=== PATIENT | male | born 2000 | race Caucasian/White ===

== ENCOUNTER 2019-09-30 20:28 | Emergency (ER) | payer SELFPAY ==
[~2019-09-30] VITALS: Ht 187.9 cm; Wt 86.2 kg
[~2019-09-30 20:28] MED LIST: MOTRIN400 MG PO
[2019-09-30 21:15] LABS: BASO # 0.1 10*3/uL (0.0-0.1); BASO % 0.5 % (0.0-1.0); EOS # 0.3 10*3/uL (0.0-0.4); HEMATOCRIT 45.1 % (42.0-52.0); LYMPH # 4.8 10*3/uL (1.3-4.4); LYMPH % 36.5 % (27.0-41.0); MEAN CELL VOLUME 84.3 fl (80.0-94.0); MEAN CORPUSCULAR HGB 30.5 pg (27.0-31.0); MEAN CORPUSCULAR HGB CONC 36.1 g/dl (33.0-37.0); MEAN PLATELET VOLUME 9.3 fl (9.6-12.3); MONO # 1.1 10*3/uL (0.1-1.0); MONO % 8.5 % (3.0-9.0); NEUT # 6.8 10*3/uL (2.3-7.9); NEUT % 52.2 % (47.0-73.0); PLATELET COUNT AUTOMATED 319 10*3/uL (130-400); RED BLOOD COUNT 5.35 10*6/uL (4.50-5.90); RED CELL DISTRI WIDTH 11.7 % (0-14.5)
[2019-09-30 21:30] LABS: BACTERIA 1+; BILIRUBIN 1+ (NEGATIVE); BLOOD NEGATIVE (NEGATIVE); CLARITY CLEAR (CLEAR); COLOR YELLOW (YELLOW); GLUCOSE NEGATIVE (NEGATIVE); KETONE NEGATIVE (NEGATIVE); LEUKO ESTERASE NEGATIVE (NEGATIVE); MUCOUS 3+; NITRITE NEGATIVE (NEGATIVE); PH 6.5 (5.0-9.0); UROBILINOGEN 0.2 E.U./dl (0.2-1.0)
[2019-09-30 21:31] LABS: ALBUMIN 4.3 gm/dl (3.1-4.5); ALKALINE PHOSPHATASE 58 U/L (45-117); BUN 10 mg/dl (7-24); CHLORIDE 98 mmol/L (98-107); LIPASE 281 U/L (73-393); SGOT/AST 6 IU/L (3-35); SGPT/ALT 17 U/L (12-78); SODIUM 133 mmol/L (136-145); TOTAL PROTEIN 7.7 gm/dL (6.4-8.2)
[2019-10-01 00:50] VITALS: BP 107/89
== END 2019-10-01 01:05 | disposition home or self-care (01) ==
LOC: ED 20:28
PROVIDERS: Emergency Medicine
DX: R11.2 Nausea with vomiting, unspecified (principal); E80.6 Other disorders of bilirubin metabolism; R10.9 Unspecified abdominal pain

== ENCOUNTER 2020-06-13 13:09 | Emergency (ER) | payer SELFPAY ==
[~2020-06-13] VITALS: Ht 187.9 cm; Wt 81.6 kg
[2020-06-13 13:23] VITALS: BP 134/86
[2020-06-13 14:40] LABS: BASO % 0.3 % (0.0-1.0); EOS % 0.4 % (1.0-4.0); HEMATOCRIT 48.8 % (42.0-52.0); LYMPH # 2.1 10*3/uL (1.3-4.4); LYMPH % 18.1 % (27.0-41.0); MEAN CELL VOLUME 83.6 fl (80.0-94.0); MEAN CORPUSCULAR HGB CONC 35.9 g/dl (33.0-37.0); MEAN PLATELET VOLUME 9.4 fl (9.6-12.3); MONO # 0.9 10*3/uL (0.1-1.0); MONO % 8.2 % (3.0-9.0); NEUT # 8.3 10*3/uL (2.3-7.9); NEUT % 72.7 % (47.0-73.0); PLATELET COUNT AUTOMATED 317 10*3/uL (130-400); RED BLOOD COUNT 5.84 10*6/uL (4.50-5.90); RED CELL DISTRI WIDTH 11.9 % (0-14.5); WHITE BLOOD COUNT 11.4 10*3/uL (4.8-10.8)
[2020-06-13 14:56] LABS: ALBUMIN 4.5 gm/dl (3.1-4.5); ALKALINE PHOSPHATASE 70 U/L (45-117); BUN 9 mg/dl (7-24); CHLORIDE 101 mmol/L (98-107); CREATININE 0.77 mg/dL (0.70-1.30); POTASSIUM 3.1 mmol/L (3.5-5.1); SGOT/AST 9 IU/L (3-35); SGPT/ALT 15 U/L (12-78); SODIUM 136 mmol/L (136-145); TOTAL PROTEIN 8.1 gm/dL (6.4-8.2)
[2020-06-13 15:00] LABS: BILIRUBIN Negative (Negative); BLOOD Negative (Negative); CLARITY Turbid (Clear); COLOR Dark Yellow (Yellow); GLUCOSE Negative (Negative); KETONE Trace (Negative); LEUKO ESTERASE Negative (Negative); NITRITE Negative (Negative); PH 6.5 (4.5-8.0); SPECIFIC GRAVITY 1.025 (1.001-1.030)
[2020-06-13 15:09] LABS: URINE AMPHETAMINES < 1000 (1000ng/ml); URINE BARBITURATES < 200 (200ng/ml); URINE BENZODIAZEPINES < 200 (200ng/ml); URINE CANNABINOIDS (THC) > 50 (50ng/ml); URINE COCAINE < 300 (300ng/ml); URINE METHADONE < 300 (300ng/ml); URINE OPIATES < 300 (300ng/ml)
[2020-06-13 15:12] LABS: EPITHELIAL CELLS 0-2; RBC 0-2 rbc/hpf (0-2); WBC 0-2 wbc/hpf (0-5)
[2020-06-13 15:13] LABS: BACTERIA 2+
[2020-06-13 15:14] LABS: URINE PHENCYCLIDINE < 25 (25ng/ml)
[2020-06-13] MEDS ORDERED: ZOFRAN4 MG PO (17:12)
== END 2020-06-13 18:10 | disposition home or self-care (01) ==
LOC: ED 13:09
PROVIDERS: Nurse Practitioner
DX: R11.2 Nausea with vomiting, unspecified (principal); E86.0 Dehydration; E87.6 Hypokalemia